=== PATIENT | female | born 1985 | race Caucasian/White ===

== ENCOUNTER 2017-05-15 10:27 | Outpatient (CLI) | payer OTHER ==
[~2017-05-15] VITALS: Ht 160 cm; Wt 75.9 kg
[2017-05-15 10:42] VITALS: BP 121/78; PULSE 91; TEMP 99
[2017-05-15] MEDS ORDERED: NORCO 325 MG-51 TAB PO (10:57)
[2017-05-15] MEDS ORDERED: PRENATAL MVI (10:57)
[2017-05-15 11:00] VITALS: BP 122/80; PULSE 85
[2017-05-15 11:30] VITALS: BP 110/76; PULSE 85
[2017-05-15 12:00] VITALS: BP 124/73; PULSE 81
[2017-05-15 12:30] VITALS: BP 111/69; PULSE 85
[2017-05-15 13:23] VITALS: BP 120/75; PULSE 88
== END 2017-05-15 13:40 | disposition home or self-care (01) ==
LOC: LDRO 10:27
DX: O62.9 Abnormality of forces of labor, unspecified (principal); O99.89 Other specified diseases and conditions complicating pregnancy, childbirth and the puerperium; M54.9 Dorsalgia, unspecified; Z3A.37 37 weeks gestation of pregnancy
CPT/HCPCS: J7120

== ENCOUNTER 2017-05-20 00:20 | Outpatient (CLI) | payer OTHER ==
[~2017-05-20] VITALS: Ht 160 cm; Wt 75.9 kg
[~2017-05-20 00:20] MED LIST: NORCO 325 MG-51 TAB PO; PRENATAL MVI
[2017-05-20 00:45] VITALS: BP 134/85; PULSE 96
[2017-05-20 01:15] VITALS: BP 117/77; PULSE 86
[2017-05-20 01:40] VITALS: BP 113/69; PULSE 89
[2017-05-20 03:20] VITALS: BP 113/70; PULSE 77
== END 2017-05-20 03:55 | disposition home or self-care (01) ==
LOC: LDRO 00:20
DX: O62.9 Abnormality of forces of labor, unspecified (principal); Z3A.39 39 weeks gestation of pregnancy

== ENCOUNTER 2017-05-29 12:58 | Inpatient (IN) | payer OTHER ==
[2017-05-29] VITALS (18 sets, daily range): BP systolic 119–166; BP diastolic 63–89; PULSE 79–112; TEMP 98.3–98.5
[~2017-05-29] VITALS: Ht 160 cm; Wt 79.1 kg
[2017-05-29 17:24] LABS: BASO % 0.4 % (0.0-2.0); EOS # 0.1 (0.0-0.7); EOS % 0.5 % (0-4.0); GRAN # 7.8 (1.4-6.5); GRAN % 75.1 % (42.2-75.2); LYMPH # 1.7 (1.2-3.4); LYMPH % 16.3 % (20.0-51.0); MEAN CELL VOLUME 83 fl (80.0-100.0); MEAN CORPUSCULAR HGB CONC 34 g/dl (33.0-37.0); MONO # 0.7 (0.1-0.6); MONO % 7.1 % (1.7-9.3); PLATELET COUNT 226 K/mm3 (130-400); RED BLOOD COUNT 3.86 M/mm3 (4.10-5.30); REDCELL DISTRIBUTION WIDTH-CV 12.6 % (11.5-14.5); WHITE BLOOD COUNT 10.4 K/mm3 (4.8-10.8)
[2017-05-29 17:25] LABS: HEMATOCRIT 32.2 % (37.0-47.0); HEMOGLOBIN 10.9 g/dl (12.5-16.0); MEAN CORPUSCULAR HEMOGLOBIN 28 pg (27.0-31.0)
[2017-05-30 04:00] VITALS: BP 114/64; PULSE 87; TEMP 98.4
[2017-05-30 07:00] VITALS: BP 113/77; PULSE 69; TEMP 98.1
[2017-05-30] MEDS ORDERED: MOTRIN 800800 MG/TAB PO (08:49)
[2017-05-30] MEDS ORDERED: PERCOCET 325 MG1 TA2 PO (08:50)
[2017-05-30 15:35] VITALS: BP 114/62; PULSE 83; TEMP 98.1
[2017-05-30 19:45] VITALS: BP 126/84; PULSE 84; TEMP 97.8
[2017-05-31 06:50] VITALS: BP 115/71; PULSE 82; TEMP 97.7
== END 2017-05-31 10:05 | disposition home or self-care (01) | DRG 775 ==
LOC: LDR 12:58 → OB 15:25
PROVIDERS: Obstetrics & Gynecology
PROC: 10E0XZZ Delivery of Products of Conception, External Approach (ICD-10-PCS; principal; 2017-05-29)
DX: O77.0 Labor and delivery complicated by meconium in amniotic fluid (principal); O69.81X0 Labor and delivery complicated by cord around neck, without compression, not applicable or unspecified; Z3A.39 39 weeks gestation of pregnancy; Z37.0 Single live birth
CPT/HCPCS: J0595; J2590; J7120